=== PATIENT | female | born 1930 | race Caucasian/White ===

== ENCOUNTER → 2016-10-30 | Outpatient (CLI) | payer OTHER | END | disposition home or self-care (01) | LOC: PCVCCLINIC 11:49 | PROVIDERS: ATTEND Internal Medicine Cardiovascular Disease | DX: E78.00 Pure hypercholesterolemia, unspecified (principal); R01.1 Cardiac murmur, unspecified; I10 Essential (primary) hypertension; I48.0 Paroxysmal atrial fibrillation; E11.9 Type 2 diabetes mellitus without complications; G45.9 Transient cerebral ischemic attack, unspecified; I83.90 Asymptomatic varicose veins of unspecified lower extremity | CPT/HCPCS: 80061; 93005; G0463 ==

== ENCOUNTER → 2017-02-10 | Outpatient (CLI) | payer OTHER | END | disposition home or self-care (01) | LOC: PCVCCLINIC 12:50 | PROVIDERS: ATTEND Internal Medicine Cardiovascular Disease | DX: I47.1 Supraventricular tachycardia (principal); I48.0 Paroxysmal atrial fibrillation; I10 Essential (primary) hypertension; E78.00 Pure hypercholesterolemia, unspecified; G45.9 Transient cerebral ischemic attack, unspecified; I83.90 Asymptomatic varicose veins of unspecified lower extremity | CPT/HCPCS: 80061; 93005; G0463 ==

== ENCOUNTER → 2017-10-20 | Outpatient (CLI) | payer OTHER | END | disposition home or self-care (01) | LOC: PCVCCLINIC 11:31 | DX: I48.0 Paroxysmal atrial fibrillation (principal); E78.00 Pure hypercholesterolemia, unspecified; I47.1 Supraventricular tachycardia; M19.90 Unspecified osteoarthritis, unspecified site; E11.8 Type 2 diabetes mellitus with unspecified complications; Z79.82 Long term (current) use of aspirin; Z79.899 Other long term (current) drug therapy | CPT/HCPCS: 80061; 93005; G0463 ==

== ENCOUNTER → 2019-03-03 | Outpatient (CLI) | payer OTHER | END | disposition home or self-care (01) | LOC: PCVCCLINIC 14:00 | PROVIDERS: ATTEND Internal Medicine Cardiovascular Disease | DX: R00.2 Palpitations (principal); I47.1 Supraventricular tachycardia; E78.00 Pure hypercholesterolemia, unspecified; E11.9 Type 2 diabetes mellitus without complications; K21.9 Gastro-esophageal reflux disease without esophagitis; I10 Essential (primary) hypertension; Z79.899 Other long term (current) drug therapy; Z88.2 Allergy status to sulfonamides | CPT/HCPCS: 36415; 80061; 93005; G0463 ==

== ENCOUNTER → 2019-07-28 | Outpatient (CLI) | payer OTHER | END | disposition home or self-care (01) | LOC: PCVCCLINIC 16:00 | PROVIDERS: ATTEND Internal Medicine Cardiovascular Disease | DX: I48.0 Paroxysmal atrial fibrillation (principal); I10 Essential (primary) hypertension; I47.1 Supraventricular tachycardia; E78.5 Hyperlipidemia, unspecified; E11.9 Type 2 diabetes mellitus without complications; K21.9 Gastro-esophageal reflux disease without esophagitis; E78.00 Pure hypercholesterolemia, unspecified; Z90.710 Acquired absence of both cervix and uterus; Z96.653 Presence of artificial knee joint, bilateral; Z79.82 Long term (current) use of aspirin; Z79.899 Other long term (current) drug therapy; Z88.2 Allergy status to sulfonamides | CPT/HCPCS: 36415; 80061; 93005; G0463 ==

== ENCOUNTER → 2019-08-03 | Outpatient (CLI) | payer OTHER ==
[~2019-08-03] MED LIST: REGADENOSON 0.4 MG/5 ML DISP.SYRIN. IV ONE
--- NOTE | 2019-08-03 16:49 | PCVCIMAG ---
APPROVED REPORT Study performed: 08/03/2019 07:46:44 EXAM: Comprehensive 2D, Doppler, and color-flow Echocardiogram Patient Location: Echo lab Status: routine BSA: 1.69 HR: 60 bpmBP: 138/64 mmHg Rhythm: NSR Other Information Study Quality: Adequate Indications Pre-Op Dyspnea parox a fib, PSVT 2D Dimensions IVSd: 12.86 (7-11mm)LVOT Diam: 21.12 (18-24mm) LVDd: 42.46 mm PWd: 13.07 (7-11mm)Ascending Ao: 35.78 (22-36mm) LVDs: 28.76 (25-40mm) Left Atrium: 41.79 (27-40mm) Aortic Root: 31.43 mm LV Single Plane 4CH: 66.73 % LV Single Plane 2CH: 58.67 % Biplane EF: 62.8 % Volumes Left Atrial Volume (Systole) Single Plane 4CH: 64.64 mLSingle Plane 2CH: 79.80 mL LA ESV Index: 43.00 mL/m2 Aortic Valve AoV Peak Tristan.: 2.52 m/s AO Peak Gr.: 23.88 mmHgLVOT Max P.68 mmHg AO Mean Gr.: 13.53 mmHgLVOT Mean P.40 mmHg AO V2 Mean: 1.73 m/sLVOT Max V: 1.11 m/s AO V2 VTI: 53.31 cmLVOT Mean V: 0.73 m/s GEORGE (VTI): 1.54 [id number] V1 VTI: 23.48 cm GEORGE Vmax: 1.54 cm2 SV (LVOT): 82.23 mL Mitral Valve E/A Ratio: 0.8 MV Decel. Time: 268.20 ms MV E Max Tristan.: 0.75 m/s MV A Tristan.: 0.89 m/s IVRT: 89.97 ms Pulmonary Valve PV Peak Tristan.: 1.13 m/sPV Peak Gr.: 5.13 mmHg Pulmonary Vein P Vein S: 0.35 m/sP Vein A: 0.35 m/s P Vein D: 0.53 m/sP Vein A Dur.: 145.3 msec P Vein S/D Ratio: 0.66 Tricuspid Valve TR Peak Tristan.: 2.62 m/s TR Peak Gr.: 27.55 mmHg Left Ventricle The left ventricle is normal size. There is normal LV segmental wall motion. Mild concentric left ventricular hypertrophy. Left ventricular systolic function is normal. The left ventricular ejection fraction is within the normal range. LVEF is 60%. Grade I - abnormal relaxation pattern. Right Ventricle The right ventricle is normal size. The right ventricular systolic function is normal. Atria Left atrium is moderately dilated. Right atrium is mildly dilated. Aortic Valve Moderate aortic valve sclerosis. No aortic regurgitation is present. There is mild valvular aortic stenosis. Calculated aortic valve area is 1.5 cm2 with maximum pressure gradient of 25 mmHg and mean pressure gradient of 14 mmHg. Mitral Valve The mitral valve is normal in structure. Trace mitral regurgitation. No evidence of mitral valve stenosis. Tricuspid Valve The tricuspid valve is normal in structure. Mild tricuspid regurgitation with PAP of 35 mmHg. Pulmonic Valve The pulmonary valve is normal in structure. There is no pulmonic valvular regurgitation. Great Vessels The aortic root is normal in size. IVC is normal in size and collapses >50% with inspiration. Pericardium There is no pericardial effusion. There is no pleural effusion. <Conclusion> The left ventricle is normal size. LVEF is 60%. Grade I - abnormal relaxation pattern. The right ventricle is normal size. Left atrium is moderately dilated. Right atrium is mildly dilated. Moderate aortic valve sclerosis. No aortic regurgitation is present. There is mild valvular aortic stenosis. Calculated aortic valve area is 1.5 cm2 with maximum pressure gradient of 25 mmHg and mean pressure gradient of 14 mmHg. Trace mitral regurgitation. Mild tricuspid regurgitation with PAP of 35 mmHg. The aortic root is normal in size. There is no pericardial effusion.
--- NOTE | 2019-08-03 16:50 | PCVCIMAG ---
APPROVED REPORT Imaging Protocol: Rest Tc-99m/Stress Tc-99m 1 day Study performed: 08/03/2019 09:17:12 Indication: Dyspnea, P-Atrial Fibrillation, Pre-Operative CV evaluation Patient Location: Out-Patient Stress Nurse: Staci Clark RN, Arlene Chaudhari RN PA Tech:NICANOR GarcíaMT Ht: 4 ft 11 in Wt: 165 lbs BSA: 1.70 m2 HR: 60 bpm BP: 130/59 mmHg BMI: 33.3 Rhythm: Bradycardia Medical History Medical History: Hyperlipidemia, HTN Medications: Metoprolol, Aspirin, Diltiazem Allergies: Sulfa Cardiac Risk Factors: Age Pretest Chest Pain Characteristics: No chest pain Exercise History: Sedentary Physical Disabilities: Knees Meds Held (24 hrs): Metoprolol Resting Data Rest SPECT myocardial perfusion imaging was performed in supine position 45 minutes following the intravenous injection of 9.9 mCi of Tc-99m Sestamibi. Time of rest injection: 0840 Date: 08/03/2019 Administration Route: IV Administration Site: Right Arm Pharmacologic Stress Pharmacologic stress test was performed by injecting Regadenoson 0.4 mg IV push over 10-15 seconds immediately followed by the intravenous injection of 32.8 mCi of Tc-99m Sestamibi. Time of stress injection: 1045 Date: 08/03/2019 Administration Route: IV Administration Site: Right Arm Gated Stress SPECT was performed 45 minutes after stress injection. The images were gated to evaluate regional wall motion and calculate left ventricular ejection fraction. Stress Test Details Stress Test: Pharmacologic stress testing performed using 0.4 mg of regadenoson per 5 mL given IV over 10 seconds. Reason for pharmacologic stress test: physical limitation, pre-op for TKA. HRMax Heart Rate (APMHR): 134 bpm Resting HR: 60 bpmTarget HR (85% APMHR): 113 bpm Max HR Achieved: 79 bpm % of APMHR: 58 Recovery HR: 65 bpm BP Resting BP: 130/59 mmHg Max BP: 169/70 mmHg Recovery BP: 142/62 mmHg ECG Resting ECG: Sinus Bradycardia Stress ECG: Sinus Rhythm Arrhythmia: PVC's Recovery ECG: Sinus Rhythm Clinical Reason for Termination: Completed protocol Stress Symptoms: Dyspnea, Headache, Epigastric pressure Symptoms resolved with caffeine. Stress ECG Conclusion ECG: Non-ischemic Study Quality Study: Good Study Data Post stress, the left ventricular ejection was 91%.. SSS: 0 SRS: 1 SDS: 0 TID = 0.97. Perfusion No evidence of stress induced ischemia or prior myocardial infarction. Wall Motion Normal left ventricular size and function with no regional wall motion abnormalities. Nuclear Conclusion No evidence of stress induced ischemia or prior myocardial infarction. Normal left ventricular size and function with no regional wall motion abnormalities. Post stress, the left ventricular ejection was 91%. No prior study available for comparison. Interpreted by: Mushtaq Downs MD Electronically Approved: 08/03/2019 13:26:32 <Conclusion> ECG: Non-ischemic
== END | disposition home or self-care (01) ==
LOC: PCVCIMAG 07:42
PROVIDERS: ATTEND Internal Medicine Cardiovascular Disease
DX: Z01.810 Encounter for preprocedural cardiovascular examination (principal); I08.2 Rheumatic disorders of both aortic and tricuspid valves; I48.0 Paroxysmal atrial fibrillation; I47.1 Supraventricular tachycardia; R06.02 Shortness of breath; E11.9 Type 2 diabetes mellitus without complications; I11.9 Hypertensive heart disease without heart failure; K59.09 Other constipation; G45.9 Transient cerebral ischemic attack, unspecified; K21.9 Gastro-esophageal reflux disease without esophagitis; E78.00 Pure hypercholesterolemia, unspecified
CPT/HCPCS: 78452; 93017; 93306; A9500; J2785